=== PATIENT | male | born 1975 | race Caucasian/White ===

== ENCOUNTER 2018-08-01 05:23 | Day surgery (SDC) | payer OTHER ==
[~2018-08-01] VITALS: Ht 170.2 cm; Wt 124.3 kg
--- NOTE | ~2018-08-01 | O ---
[facility] [place] [address] OPERATIVE REPORT Name: TERRY MOURA Room #: 150-3 [facility].#: [id number] Admission: 08/01/18 Attend Phys: Pedro Pablo Blakely MD Discharge: Date of : 73 Report #: [id number] THIS REPORT FOR: //name// CC[facility] DATE OF SERVICE: 08/01/2018 PREOPERATIVE DIAGNOSIS: Right hallux rigidus. POSTOPERATIVE DIAGNOSIS: Right hallux rigidus. PROCEDURE: Right great toe cheilectomy. SURGEON: Pedro Pablo Blakely M.D. TEACHER PUBLIC HEALTH: Yancy Ashton. ANESTHESIA: General. ESTIMATED BLOOD LOSS: Minimal. DRAINS: None. TOURNIQUET TIME: 30 minutes. DESCRIPTION OF PROCEDURE: The patient brought to the operating room where he was placed under general anesthesia. Once under adequate general anesthesia, his right lower extremity was prepped and draped in sterile manner. The extremity was elevated, exsanguinated, tourniquet placed to 300 mmHg. A dorsal incision over the first metatarsophalangeal joint was made. This was dissected down through soft tissue to the joint capsule, which was incised medially over the joint. Exposure was made in the dorsal osteophytes at the metatarsophalangeal joint and a sagittal saw was then utilized to resect the dorsal osteophyte at the first metatarsal head. Any impinging areas were removed with a rongeur. The wound was irrigated copiously and closed with 2-0 Vicryl in the capsular layer, 2-0 Vicryl in subcutaneous tissues and lula were used for the skin. The wounds were dressed with Xeroform, 4 x 4s, and a sterile soft compressive dressing was placed. It should be noted that during the procedure, the patient's toe was able to be dorsiflexed to 90 degrees. The wound was dressed with Xeroform, 4 x 4s, and sterile soft and compressive dressing was placed. Tourniquet was let down at 30 minutes. Toes were pink and warm with good capillary refill. There were no complications from the [address] [address] OPERATIVE REPORT Name: ZENYTERRY Oneil Room #: 150-3 [facility].#: [id number] Admission: 08/01/18 Attend Phys: Pedro Pablo Blakely MD Discharge: Date of : 73 Report #: [id number] procedure. The patient tolerated the procedure well and went to the recovery room without incident. By: 1416 1424 Pedro Pablo Blakely MD /nt
[~2018-08-01 05:23] MED LIST: LISINOPRIL20 MG PO; METFORMIN HCL500 MG PO
[2018-08-01 12:07] VITALS: BP 134/74
--- NOTE | 2018-08-01 13:41 | EKG ---
[address] [address] ELECTROCARDIOGRAM REPORT Name: TERRY MOURA Room #: 150-3 [facility]#: [id number] Admission: 08/01/18 Attend Phys: Pedro Pablo Blakely MD Discharge: Date of : 73 Report #: [id number] THIS REPORT FOR: //name// [facility] Test Date: 2018-08-01 Test Time: 11:26:24 Pat Name: TERRY MOURA Department: Room: 150 3 Gender: M Geoscientist: CASE : 1975 Requested By: Pedro Pablo Blakely Order Number: [id number] MD: Dion Ramirez Measurements Intervals [place] Rate: 80 P: 42 NH: 145 QRS: 2 QRSD: 88 T: 4 QT: 399 QTc: 461 Interpretive Statements Sinus rhythm No previous ECG available for comparison Electronically Signed On 08-01-2018 13:41:04 [employer] by Dion Ramirez [email or web address] <ELECTRONICALLY SIGNED> By: Dion Ramirez MD 08/01/18 1341 1126 1126 Dion Ramirez MD /INA
[2018-08-01] MEDS ORDERED: PERCOCET 7.5-31 EACH PO (14:10)
[2018-08-01 14:50] VITALS: BP 134/74
== END 2018-08-01 15:45 | disposition home or self-care (01) ==
LOC: TBA 05:23 → OR 05:23 → TBA 05:24 → OR 10:00
DX: M20.21 Hallux rigidus, right foot (principal); I10 Essential (primary) hypertension; E11.9 Type 2 diabetes mellitus without complications; F17.210 Nicotine dependence, cigarettes, uncomplicated; Z90.49 Acquired absence of other specified parts of digestive tract; Z98.890 Other specified postprocedural states; Z88.0 Allergy status to penicillin; Z79.899 Other long term (current) drug therapy
CPT/HCPCS: 50010; 50101; 50386; 50951; 51412; 56526; 57091; 62110; 62900; 70005